=== PATIENT | male | born 1950 | race Caucasian/White ===

== ENCOUNTER 2019-02-03 12:00 | Inpatient (IN) | payer OTHER, SELFPAY ==
[2019-01-27 12:40] VITALS: BMI 29.2
[2019-02-03] VITALS (15 sets, daily range): BP systolic 90–128; BP diastolic 46–82; PULSE 45–69; RESP 8–20; TEMP 36.3–37.1; O2SAT 95–100; BMI 28.8
--- NOTE | 2019-02-03 06:00 | DI.RAD.S_ITS ---
PROCEDURE: XR PELVIS 1-2V INDICATIONS: post op total right hip TECHNIQUE: 1 view of the lower pelvis acquired. COMPARISON: [facility], CR, XR PELVIS WITH LATERAL HIP RIGHT, 12/25/2018, 13:56. FINDINGS: Bones: Patient is status post right hip arthroplasty, with hardware components in expected positions. The hip joint appears congruent. The visualized bony structures appear intact. Prior left total hip arthroplasty is again seen with no gross hardware loosening or failure. Soft tissues: Overlying postoperative changes are noted. No suspicious soft tissue densities. IMPRESSION: Postop changes from right total hip arthroplasty with anatomic right hip alignment. Dictated by: Madan Peres M.D. on 02/03/2019 at 16:57 Approved by: Madan Peres M.D. on 02/03/2019 at 16:58
[2019-02-03] MEDS: ACETAMINOPHEN 325 MG TABLET 975 MG PO (12:45)
[2019-02-03] MEDS: CELECOXIB 200 MG CAPSULE PO (12:45)
[2019-02-03] MEDS: PREGABALIN 75 MG CAPSULE PO (12:45)
--- NOTE | 2019-02-03 13:42 | PM.PREOP ---
Pre-operative Note Interval Note History & Physical reviewed/Exam performed by Physician: Yes Changes to H&P: No
[2019-02-03] MEDS: CEFAZOLIN 1 GM VIAL IV (14:19)
[2019-02-03] MEDS: LACTATED RINGERS 1,000 ML 42 ML IV ×2 (14:40→15:51)
--- NOTE | 2019-02-03 14:54 | SUR.OPER ---
Lateral on padded OR bed. Gel axillary roll. Arms secured on padded armboard with pillow supporting top arm. Padded hip positioner braces x4 - anterior and posterior chest and pelvis. Additional gel pad used anterior pelvis. Gel pad under bottom leg from knee to foot and secured with tape over sheet.
[2019-02-03] MEDS: ROPIVACAINE 0.5% PF 5 MG/ML 20ML AMP 60 ML INJ (15:03)
[2019-02-03] MEDS: KETOROLAC 30 MG/ML VIAL IM (15:04)
[2019-02-03] MEDS: MORPHINE 4 MG/ML INJ IM (15:04)
[2019-02-03] MEDS: TRANEXAMIC ACID 1,000 MG VIAL 2000 MG INJ ×2 (15:05→15:28)
--- NOTE | 2019-02-03 15:58 | SUR.PREOP ---
addendum to preop notes. IV started, LR infusing @ 1235 (first bag)
--- NOTE | 2019-02-03 16:21 | P.OP_ITS ---
Operative Date/Time/Diagnoses Date of procedure: 02/03/19 Time of procedure: 16:18 Pre-op diagnosis: Right hip degenerative joint disease Post-op diagnosis: same Procedure & Clinicians Procedure: Right total hip arthroplasty (CPT code 46952 with care management assistant) Same procedure as scheduled: Yes Indications: Patient is an 68-year-old male with severe right hip DJD. The patient has pain with activities and at rest, limited ambulation and activity tolerance, difficulties with ADLs, and failure of conservative treatment. We have discussed the nature of condition, treatment options, risks and benefits, and patient elects to proceed with total hip arthroplasty and gives informed consent. Surgeon: Rao Aponte Typecasting Machine Operator: David [place] Anesthesia Type: General and Spinal Operative Notes Closure Type: primary Specimen(s): none sent Prosthetic devices, grafts, tissues, transplants, or devices: Acetabulum: Corral and Nephew R3 acetabular component size 52 mm Femoral component: Corral [employer] Nephew Anthology stem size 7 with standard offset Femoral head: 36 mm + 0 Oxinium Estimated Blood Loss (mL): 150 Blood products transfused: none Procedure in detail: After satisfaction induction of anesthetic, and administration of IV antibiotics, the patient was positioned in the lateral decubitus position with all bony prominences well padded and pelvic position secured using a hip milling general superintendent positioning device. Right hip and lower extremity prepped and draped in the usual sterile fashion, 1st dose of intravenous tranexamic acid was administered, then a longitudinal incision was created centered over the greater trochanter and carried sharply through the skin and subcutaneous tissues down to the fascia justin which was divided longitudinally and retracted with a Charnley retractor. External rotators visualize, cut, tagged, and retracted posteriorly, then the capsule was cut in a T-type fashion with the corners tagged and retracted. Hip was dislocated and femoral neck cut made according to preoperative templating. Acetabular retractors then placed, and the acetabular labrum and osteophytes were excised. The acetabulum was then sequentially reamed to 51 mm with an excellent circumferential ream and fit with the trial. The trial component was removed and a permanent size 52 mm Corral and Nephew R3 acetabular component was selected, positioned, and impacted with satisfactory position and fixation achieved. Permanent liner was then inserted with the elevated lip directed posteriorly. Soft tissue then removed off the lateral femoral neck in the lateral neck was entered using a box osteotome. T-handled reamers placed down the canal followed by sequential broaching to 7 with the final broach left in place for trial reduction which demonstrated excellent leg length, range of motion, and stability characteristics with a 36 mm +0 trial ball. The trial and broach were removed, and a permanent size 7 Corral and Nephew Anthology stem was selected and inserted with excellent position and fixation achieved. Another trial reduction yielded the above characteristics so the trial ball was exchanged for a permanent 36 mm +0 Oxinium ball. The hip was irrigated and reduced and excellent leg length range of motion and stability characteristics were achieved and maintained. Periarticular tissues were infiltrated with combination of ropivacaine, Toradol, and Marcaine. The hip was copiously irrigated, and the capsule repaired with #2 Ethibond, and the piriformis was repaired back to the greater trochanter with the same. Fascia justin closed with interrupted #1 Ethibond sutures, and the subcutaneous tissues were closed in 2 layers of 0 Vicryl and 2 0 Vicryl. Skin was closed with kirk and sterile dressings applied. Second dose of tranexamic acid was administered intravenously, and the anesthetic was terminated. Complications: none Condition: stable Disposition: PACU Plan for aftercare: Patient will be admitted to the acute care woo, and anticipate discharge on postop day 1 or 2 with follow-up in office in 10-14 days. Outpatient physical therapy will be arranged and patient will continue to observe posterior hip precautions. Patient will continue use of postoperative Lovenox for 10 days postop.
--- NOTE | 2019-02-03 16:44 | SUR.PHASEI ---
1635 to room 220, bed down and locked, call light within reach, clothing bag to room. present. Report updated, VSS, states that he is very physically active. pt has no pain or nausea, alert, oriented, skin warm and dry, resp even and regular, dressing remains CDI, SCDs on by TAP GRINDER. gross movement in LE, R>L. stable. no questions/concerns from staff/patient/.
[2019-02-03] MEDS: LACTATED RINGERS 1,000 ML 125 ML IV (17:00)
[2019-02-03] MEDS: HYDROCODONE/ACET 5/325 TABLET 1 TAB PO (19:39)
[2019-02-03] MEDS: ASPIRIN EC 81 MG TABLET PO (19:41)
[2019-02-03] MEDS: CEFAZOLIN 2 GM/100 ML FROZ.PIGGY IV (22:03)
--- NOTE | 2019-02-03 23:24 | PC.NURSE ---
Post-op note: Juan brought from PACU around 1640, Ox3, VS stable, HR shoshana in the 40's-50's, reports bradycardia is baseline for him. RA oxygen 94-98%, using IS to 2500 & lung sounds are clear. Reported bilateral LE numbness, wiggling toes & slightly moving feet but denies feeling nurse hands on either leg/foot. SCD's on bilaterally, pedal pulses are strong. Since about 1940 he has reported increased feeling, dull ache to right hip, less numbness to legs/feet, can feel nurse hands on legs/feet but reports some residual numbness to LE's. Ambulated to BR with 1 minimal assist, mostly SBA when up. He voided with some hesitation, but after standing at toilet for 15 minutes he seemed to void adequate amounts. Reports didn't have my flomax this morning. He denies nausea, tolerating general diet. Oriented to room & call button, calling nurse appropriately for needs.
[2019-02-04] MEDS: HYDROCODONE/ACET 5/325 TABLET 1 TAB PO (00:25)
[2019-02-04] MEDS: LACTATED RINGERS 1,000 ML 125 ML IV (01:06)
[2019-02-04 05:40] VITALS: BP 106/52; PULSE 54; RESP 16; TEMP 36.9; O2SAT 98
[2019-02-04 05:59] LABS: Hematocrit 40.9 % (41-53); Hemoglobin 13.8 g/dL (13.5-17.5)
[2019-02-04] MEDS: CEFAZOLIN 2 GM/100 ML FROZ.PIGGY IV (06:15)
--- NOTE | 2019-02-04 07:57 | P.DS_ITS ---
History of Present Illness Date Patient Seen: 02/04/19 Time Patient Seen: 07:54 Chief complaint: [id number] Narrative: Pain is mild. Denies fever chills. No nausea vomiting. is Hohmann available to assist him. Patient's history of left total hip arthroplasty. Patient feels ready to go home this morning. Patient walked down the [place] yesterday with physical therapy. Otherwise without complaints. Discharge Providers Date of admission: 02/03/19 12:00 Discharge Date: 02/04/19 Primary care physician: Clarence Chou MD Consults: 02/03/19 06:00 Consult to Anesthesiology Routine Comment: Consulting Provider: Anesthesiologist Reason for consultation: Regional block for post operative pain control 02/03/19 16:47 Consult to Discharge Planning Routine Comment: Consult to Physical Therapy Evaluate & Treat Comment: Physician Instructions: post op ROBERTO protocol Consult to Respiratory Therapy Evaluate & Treat Comment: Physician Instructions: Evaluate and treat Discharge provider: David [place] PA-C Summary Discharge Diagnosis: Status post right total hip arthroplasty Hospital Course: Procedure: Right total hip arthroplasty (CPT code 53662 with assistant service manager) Same procedure as scheduled: Yes Indications: Patient is an 68-year-old male with severe right hip DJD. The patient has pain with activities and at rest, limited ambulation and activity tolerance, difficulties with ADLs, and failure of conservative treatment. We have discussed the nature of condition, treatment options, risks and benefits, and patient elects to proceed with total hip arthroplasty and gives informed consent. Surgeon: Rao Aponte Cloth Boil Off Machine Operator: David [place] Anesthesia Type: General and Spinal Operative Notes Closure Type: primary Specimen(s): none sent Prosthetic devices, grafts, tissues, transplants, or devices: Acetabulum: Corral and Nephew R3 acetabular component size 52 mm Femoral component: Corral [employer] Nephew Anthology stem size 7 with standard offset Femoral head: 36 mm + 0 Oxinium Estimated Blood Loss (mL): 150 Blood products transfused: none Patient admitted to the hospital for right total hip arthroplasty. patient consented to the same. Patient taken to the operating room underwent right total hip arthroplasty. Patient back in his room recovering well as in stable condition. Status at Discharge Cognitive/behavioral status at discharge: at baseline, oriented Functional status at discharge: uses cane/walker Overall status at discharge: patient is progressing back to baseline Time Spent with Patient Less than 30 minutes Exam Vital Signs (past 8 hours): - 04/15/19 23:55 02/04/19 05:40 Temperature 98.7 F 98.4 F Pulse Rate 54 L 54 L Respiratory Rate 15 16 Blood Pressure 103/53 L 106/52 L Pulse Oximetry 95 98 Oxygen Delivery Method Room Air Oxygen Flow Rate 0 Narrative Exam Narrative: 68-year-old male resting comfortably in bed in no apparent distress. Right hip dressing is clean, dry and intact. Neurovascular status is intact to the distal right lower extremity. Objective Labs Result Diagrams: 02/04/19 05:32 Labs: Laboratory Results - last 24 hr 02/04/19 05:32 Hgb 13.8 Hct 40.9 L Discharge Plan Discharge Plan Patient Disposition: Home Discharge comment: DC home today Discharge Med Rec/Prescriptions Prescriptions: New enoxaparin [Lovenox] 40 mg/0.4 mL Syringe 40 mg subcut DAILY Qty: 9 RF: 0 Continued tamsulosin 0.4 mg Capsule 0.4 mg PO DAILY RF: 0 Discontinued hydrocodone-acetaminophen 5-325 mg Tablet 0.5 tab PO BEDTIME PRN (Reason: pain) RF: 0 Follow up/Referrals: Clarence Chou MD [Primary Care Provider] - Provider Discharge Instructions Diet: Diet as Tolerated Activity: Weightbearing as tolerated. Posterior hip precautions Cold/Heat Therapy: per aayush Skin/Wound/Dressing Care Report to your healthcare provider any signs of infection, such as:: chills, fever, increased pain, unusual drainage and unusual redness Dressing: keep clean and dry Discharge Data Primary Care Provider: Clarence Chou Attending Provider: Rao Aponte Admit Date/Time: 02/03/19 12:00 Quality VTE Deep Vein Thrombosis/Pulmonary Embolism Present on Admission: No
[2019-02-04] MEDS: ENOXAPARIN 40 MG/0.4 ML SYRINGE SUBCUT (08:01)
[2019-02-04] MEDS: ASPIRIN EC 81 MG TABLET PO (08:01)
[2019-02-04 08:08] VITALS: BP 116/62; PULSE 62; RESP 18; TEMP 36.9; O2SAT 95
--- NOTE | 2019-02-04 08:50 | PM.PNPO.1 ---
Subjective Date Patient Seen: 02/04/19 Time Patient Seen: 08:50 Exam Vital Signs (past 8 hours): - 02/04/19 05:40 Temperature 98.4 F Pulse Rate 54 L Respiratory Rate 16 Blood Pressure 106/52 L Pulse Oximetry 98 Oxygen Delivery Method Room Air Oxygen Flow Rate 0 Objective Labs Result Diagrams: 02/04/19 05:32 Labs: Laboratory Results - last 24 hr 02/04/19 05:32 Hgb 13.8 Hct 40.9 L Assessment & Plan Post-op Postoperative Procedures Operation Date: 02/03/19 13:30 Actual Procedures Side Surgeon p Total Hip Arthroplasty Right Rao Aponte MD Quality VTE Deep Vein Thrombosis/Pulmonary Embolism Present on Admission: No
--- NOTE | 2019-02-04 09:10 | PT.IIE ---
Current Diagnoses Unilateral primary osteoarthritis, right hip (02/03/19) Surgery Performed Operation Date: 02/03/19 13:30 Actual Procedures p Total Hip Arthroplasty(Right) - Rao Aponte MD Surgical History (Last Updated 01/27/19 @ 13:11 by Lexi Alejandro RN) H/O vasectomy (Acute ~1978) History of colonoscopy with polypectomy (Acute) History of total left hip arthroplasty (Acute ~2006) Hx of repair of left rotator cuff (Acute) Hx of tonsillectomy (Acute) Medical History (Last Updated 01/27/19 @ 13:11 by Lexi Alejandro RN) Arthritis (Acute) Melanoma (Acute) Osteoarthritis (Acute) Physical Therapy Inpatient Evaluation/Re-Eval M1 PT/OT-IP Prior Functional Status Start: 02/04/19 13:38 Freq: NEEDED Status: Active Protocol: Document 02/04/19 09:10 AB (Rec: 02/04/19 14:04 AB [id number]) Medical Review Prior Functional Status Medical History Reviewed Yes Communication able to make needs known Mobility and Gait stated that he is independent with all mobilities and ambulation without AD Social History Household Members spouse Living Arrangements House Number of Floors (Floors) One Floor Number of Stairs To Enter/Railing? 2 steps to enter without rails Home Environment Tub/Shower Home Equipment Front Wheel Walker Straight Cane Raised Toilet Seat Without Armrests Hand Held Shower Employment Status Retired M2 PT-IP Current Condition Start: 02/04/19 13:38 Freq: NEEDED Status: Active Protocol: Document 02/04/19 09:10 AB (Rec: 02/04/19 14:04 AB [id number]) Physical Therapy Current Condition Current Condition Evaluation Date 02/04/19 Treatment Diagnosis s/p R ROBERTO posterior approach; difficulties in walking Onset Date 02/03/19 Precautions Posterior Hip Precautions No Hip Flexion > 90 degrees No Hip Internal Rotation No Hip Adduction Weight Bearing Status Weight Bearing Status Weight Bear as Tolerated M3 PT-IP Subjective Start: 02/04/19 13:38 Freq: NEEDED Status: Active Protocol: Document 02/04/19 09:10 AB (Rec: 02/04/19 14:04 AB [id number]) Subjective Physical Therapy Visit Type Type Initial Evaluation Visit Start Time 09:10 Visit Stop Time 09:54 Total Visit Minutes 44 Number of FINANCIAL INSTITUTION PRESIDENT Visits 0 Physical Therapy Visit Comments Patient Comments pt agreeable to do PT Patient Goals to go home Therapy Pain Assessment Pain When Pain Assessed At Rest Pain Present Pain Present Pain Reported Location Right Hip Intensity 2 Scale Used Numeric (1 - 10) Pain Management Techniques Apply Cold Re-positioning Timing of Activity with Medications M4 PT-IP Mobility and Gait Start: 02/04/19 13:38 Freq: NEEDED Status: Active Protocol: Document 02/04/19 09:10 AB (Rec: 02/04/19 14:04 AB [id number]) PT-Bed Mobility Assessment Supine to Sit Supine to Sit Standby Assistance Sit to Supine Sit to Supine Standby Assistance Scooting Scooting to Edge of Bed Standby Assistance Scooting Up and Down in Bed Standby Assistance PT-Transfer Assessment Sit to and From Stand Sit to and from Stand Standby Assistance 1 Person Assistance Use of Upper Extremities Equipment Transfer Assistive Device Gait Belt Front Wheeled Walker Orthotic/Prosthetic Devices or Brace: No Gait Assessment Gait Gait Assistance Required: Standby Assistance Distance (Feet) 150 Able to Maintain Weight Bearing Status Yes During Gait Assistive Devices Assistive Device Gait Belt Front Wheeled Walker Orthotic/Prosthetic Devices or Brace: No Gait Deviations General Gait Pattern Antalgic Factors Limiting Gait Function Factors Limiting Gait Function Decreased Activity Tolerance Decreased Strength Limited Range of Motion Pain Poor Balance Stair Climbing Assessment Evaluation Level of Assist On Stairs Contact Guard Assistance 1 Person Assistance Devices Stair Climbing Assistive Devices Straight Cane Technique/Endurance Stair Climbing Direction Ascend and Descend Stair Climbing Technique Step to Step Number of Steps Climbed 3 Query Text: Stair Climbing Set # Repetitions (reps) 2 Comments Stair Climbing Comments caregiver training conducted for stair climbing. pt completed up/down steps with PT assisting SOCIAL SERVICE COORDINATOR and pt also used SPC. pt completed with CGA. spouse counter demonstrated and was able to assist pt with 2nd set safely. PT-Balance Assessment Sitting Balance and Reactions Static Sitting Balance Ability Good Dynamic Sitting Balance Ability Good Standing Balance and Reactions Static Standing Balance Ability Fair Dynamic Standing Balance Ability Fair Device Used FWW M5 PT-IP Objective Assessments Start: 02/04/19 13:38 Freq: NEEDED Status: Active Protocol: Document 02/04/19 09:10 AB (Rec: 02/04/19 14:04 AB [id number]) Orientation Orientation/Cognition Level of Alertness Alert Orientation Name Age Birthday Month Date Year Day of Week Place Situation Language Function Ability No Deficits Noted Safety Awareness Understands Safety Issues Memory Description No Deficits Noted Gross Range of Motion Lower Extremity ROM Assessment Within Functional Limits Strength Lower Extremity Strength Assessment Right Impaired Knee 4-/5 Coordination Assessment Gross Coordination Gross Coordination WNL Sensation Assessment Sensation Gross Sensation WNL Muscle Tone Muscle Tone WNL Yes M6 PT-IP Treatment Start: 02/04/19 13:38 Freq: NEEDED Status: Active Protocol: Document 02/04/19 09:10 AB (Rec: 02/04/19 14:04 AB [id number]) Physical Therapy Treatment Education Education Provided Precautions Weight Bearing Status Post-Op Packet Safety M7 PT-IP Assessment and Plan Start: 02/04/19 13:38 Freq: NEEDED Status: Active Protocol: Document 02/04/19 09:10 AB (Rec: 02/04/19 14:04 AB [id number]) PT Summary Assessment and Plan Potential Rehabilitation Potential Good Status of Condition at Evaluation Stable Summary Impairments Pain ROM Strength Balance Coordination Sensation Tone Cognition Bed Mobility Transfers Gait Activity Tolerance Assessment Summary pt doing well with mobility and plans to go home with spouse to assist him. pt may go home when medically stable. Goals Bed Mobility Goal Independent Transfer Goal Independent Front Wheeled Walker Gait Goal Independent Front Wheel Walker Gait Distance 200 Other Goals up/down 2 steps without rails using SPC and SOCIAL SERVICE COORDINATOR CGA Days to Meet Goals 3 Frequency of Treatment Frequency Of Treatment Twice a Day Treatment Plan Physical Therapy Treatment Plan Bed Mobility Training Transfer Training Gait Training Therapeutic Exercise Balance Retraining Post Op Education Discharge Planning Hot or Cold Pack Neuromuscular Re-ed Coordination Retraining Manual Therapy Other Recommendations and Next Treatment ambulation, caregiver training Focus Recommendations To Nursing Amount of Assist Needed Standby Assistance Discharge Recommendations PT Discharge Recommendations Home with Assistance Outpatient PT
--- NOTE | 2019-02-04 12:15 | CM.DANOTE ---
Discharge Planning/Care Management DCP: assessment: case received, EMR reviewed. Discussed in Team Rounds. Ortho RITU [place] did see pt about 0700 this morning and ok'd him for a d/c to home. His note stated pt had done well with PT yesterday although review of EMR and discussion with PT indicate that pt was not seen until later this morning. Went to room to check in with pt and found room empty. Pt is a 68 year old male who admitted yesterday for a planned R ROBERTO: surgeon: Dr. Fadi Jo MCR ADV Pt arrived to the floor from PACU yesterday late afternoon 1435. Discussion with therapy team now indicates that PT Jeanna did see pt for his first session this morning and ok'd him for home. He did leave shortly thereafter with no concerns relayed by the care team members. CM Discharge Assessment Start: 02/04/19 12:14 Freq: Status: Discharge Protocol: Document 02/04/19 12:14 ITV (Rec: 02/04/19 12:15 ITV [id number]) Discharge Planning Assessment Advance Directives? Yes Advance Directives on File No History Provided By Medical Record Prior Living Arrangements House Household Members spouse Review Status In Process Next Review Type Continued Stay Review Pre-Anesthesia Assessment Start: 01/27/19 12:40 Freq: Status: Discharge Protocol: Document 01/27/19 12:40 CAB (Rec: 01/27/19 13:39 CAB [id number]) Pre-Anesthesia Assessment Patient Also Known As (MARTIN) Salvador Patient Information Reviewed Via Phone Assessment Assessment Completed With Patient Diagnostic Results CBC EKG Electrolytes Comment Outside labs/ECG scanned to record. ECG SB/45 Primary Care Provider Clarence Chou Seen Specialist in Last 12 Months Yes Specialist Seen Orthopedist Primary Language Slovak R D Intern Required No Height 165.1 cm Weight 79.832 kg Body Mass Index (BMI) 29.2 Hearing Ability Normal Visual Assist Contacts Glasses Dentition Type Teeth, Natural Present Barriers to Learning None Other Aids No Hx Anesthesia Reactions No Hx Family Anesthesia Reaction No Hx Malignant Hyperthermia No Hx Blood Transfusions No Anesthesia Review Requested No Conveyancer No alcohol intake current alcohol intake frequency 0-2 drinks per day Smoking Status Never smoker Substance Use Type does not use Pain Present Pain Reported Musculoskeletal Symptoms Joint Pain Joint Stiffness Limited Range of Motion History of Falling (Recent or History of No ) Patient is completely paralyzed or No completely immobile Mental Status Oriented to own ability Is patient on oxygen? No Does patient have DELONG/SOB No Hx Sleep Apnea No Currently Taking a Beta Carole No Can You Climb a Flight of Stairs Without Yes SOB Hx Chest Pain No Hx SOB No Hx Syncope or Dizziness No Anti-Coagulant Therapy No Has a Hand Drawer In Helper No Cardiac Testing No Hx Pacemaker/ICD No Pacemaker Rep Required? No Cardiac Clearance Received Not Applicable Diet Type At Home Regular dysphagia No Genitourinary Symptoms Change in Urinary Stream Difficulty Urinating Urinary Catheter Present No Hx Urinary Self Catheterization No Diabetes No Hx Drug Resistant Organism No Presence of External or Internal Medical Yes: Left Hip prosthesis Devices Have you traveled outside the [facility] in the last 30 days? Marital Status Lives With spouse Prior Living Arrangements House Number of Floors (Floors) One Floor Support System Spouse Patient Discharge Plan Description Return Home Comment Pt not advised on length of stay per surgeon's office Feels Safe in Current Environment Yes Been Physically Hurt or Threatened By a No Person in Current Environment Do you have thoughts of harming yourself None or others? Are you currently considering suicide? No Do you have a plan to hurt yourself or No Plan others? Do You Have Any Spiritual Beliefs That No May Affect Your HC Choices? Do You Have Any Cultural Practices That No May Affect Your HC Choices? Spiritual Referral None Comment L[employer] Who Can We Speak to About Patient's Care Family, friends Identifying Code for Release of Patient Declines to issue Information Health Care Proxy/Next of Kin Mishel () Health Care Proxy Emergency Contact Name Mishel () Emergency Contact Advance Directives? Yes Advance Directives on File No Requested Patient Bring Advanced Yes Directives DOS PAC Instructions Durable medical equipment Medications to take/avoid Nasal antibiotic No ETOH/petroleum product on skin DOS NPO Pre-surgical wash Sensory aids Sturdy shoes/comfortable clothes Do not bring valuables and remove jewelry
== END 2019-02-04 10:01 | disposition home or self-care (01) | DRG 470 ==
PROVIDERS: Admitting Provider Orthopaedic Surgery; PCP Family Medicine; Visit Provider Orthopaedic Surgery
PROC: 0SR90JZ Replacement of Right Hip Joint with Synthetic Substitute, Open Approach (ICD-10-PCS; CPT 27130; principal; 2019-02-03 13:30)
DX: M16.11 Unilateral primary osteoarthritis, right hip (principal); Z96.642 Presence of left artificial hip joint
CPT/HCPCS: 72170; 85014; 85018; 94760; 97116; 97161; C1776; J0690; J1100; J1650; J1885; J2250; J2270; J2405; J2704; J2795; J3010

== ENCOUNTER → 2021-02-28 10:21 | Outpatient (CLI) | payer OTHER, SELFPAY ==
[2019-02-03 17:54] VITALS: BMI 28.8
--- NOTE | 2021-02-28 10:22 | DI.RAD.S_ITS ---
PROCEDURE: XR CERVICAL SPINE 4V OR 5V INDICATIONS: Right upper extremity cervical radiculopathy TECHNIQUE: 5 views of the cervical spine acquired. COMPARISON: None. FINDINGS: Bones: No acute fracture identified. Multilevel degenerative endplate sclerosis and spurring. Diffuse facet arthropathy. Straightening of the normal lordotic curvature. Severe narrowing of the C4-C5 C5-C6 and C6-C7 disc spaces. Severe C7-T1 disc space narrowing. Multilevel right bony foraminal narrowing, [id number] at C4-C5 and C5-C6 and severe at C6-C7 C7-T1. Suboptimal evaluation of the left neural foramen secondary to obliquity. There is probably at least mild bony foraminal narrowing throughout the cervical spine. This could be further assessed with dedicated cervical spine MRI as clinically necessary. Soft tissues: No prevertebral soft tissue swelling. IMPRESSION: Severe multilevel cervical spondylosis and facet arthropathy as above Dictated by: Julio Lincoln M.D. on 02/28/2021 at 11:34 Approved by: Julio Lincoln M.D. on 02/28/2021 at 11:36
== END ==
PROVIDERS: PCP Family Medicine; Referring Provider Physical Medicine & Rehabilitation; Visit Provider Physical Medicine & Rehabilitation
DX: M47.22 Other spondylosis with radiculopathy, cervical region (principal); M48.02 Spinal stenosis, cervical region; M75.111 Incomplete rotator cuff tear or rupture of right shoulder, not specified as traumatic
CPT/HCPCS: 72050; 99214

== ENCOUNTER → 2021-03-07 07:41 | Outpatient (CLI) | payer OTHER, SELFPAY ==
[2019-02-03 17:54] VITALS: BMI 28.8
--- NOTE | 2021-03-07 07:42 | DI.MRI.S_ITS ---
PROCEDURE: MR CERVICAL SPINE WO CON INDICATIONS: Multilevel cervical stenosis with right upper extremity radi TECHNIQUE: Noncontrast sagittal T1 spin echo and T2 fast spin echo, sagittal STIR, foraminal oblique sagittal T2 fast spin echo, and axial gradient echo or T2 fast spin echo through the cervical spine. COMPARISON: [facility], CR, XR CERVICAL SPINE 4V OR 5V, 02/28/2021, 10:33. FINDINGS: Image quality: Diagnostic, with note made of motion artifact. Alignment and Curvature: Reversal of the normal cervical lordosis is seen, with the apex at the C5-C6 level. No focal AP alignment abnormality is seen. Bone Marrow: Marrow demonstrates normal overall signal. Spinal Cord: Visualized spinal cord has normal size and signal. No cerebellar tonsillar herniation. Paraspinous Soft Tissues: No paravertebral masses. Prevertebral soft tissues are normal in thickness. C2-C3: [id number]-hw-[id number] loss of disc height and disc signal can be seen. Moderate generalized disc osteophyte complex is seen. Mild facet joint hypertrophy is seen. There is moderate to severe right-sided moderate left-sided neural foraminal narrowing seen. Mild central canal narrowing is seen. C3-C4: Mild loss of disc height is seen. Loss of disc signal is seen. A mild degree of generalized disc osteophyte complex is seen. Moderate facet joint hypertrophy is seen. Moderate to severe bilateral neural foraminal narrowing can be seen, left worse than right. Mild to moderate central canal narrowing is seen. C4-C5: Moderate to severe loss of disc height and disc signal are seen. At least moderate disc osteophyte complex is seen. There is a central disc osteophyte protrusion seen. Uncovertebral joint hypertrophy is seen at this level. Moderate facet joint hypertrophy is seen. Moderate to severe bilateral neural foraminal narrowing is seen. Moderate to severe central canal narrowing can be seen, with associated mass effect upon the ventral spinal cord. C5-C6: Moderate to severe loss of disc height and disc signal can be seen. Moderate to severe disc osteophyte complex is seen. There is a prominent disc osteophyte protrusion seen within the central/right region, as on series 4, image 29. There is associated ventral cord flattening seen. Moderate facet joint hypertrophy is seen. Moderate to severe bilateral neural foraminal narrowing is seen at this level. C6-C7: At least moderate loss of disc height and disc signal can be seen. Moderate to prominent disc osteophyte complex is seen, with a central disc osteophyte protrusion. There is bdgb-[id number]-cgggsscb right-sided and mild left-sided facet hypertrophy seen. There is moderate to severe bilateral neural foraminal narrowing seen. Moderate to severe central canal narrowing is seen. There is associated mass effect upon the ventral spinal cord. C7-T1: Moderate to severe loss of disc height and disc signal can be seen. At least moderate disc osteophyte complex is seen, which is eccentric to the left. There is mild right-sided and moderate left-sided facet hypertrophy seen. There is moderate to severe bilateral neural foraminal narrowing seen, left worse than right. At least moderate central canal narrowing is seen. There is associated mass effect upon the ventral spinal cord. IMPRESSION: Multiple levels of prominent cervical spine degenerative change are seen, which are worst at C5-C6. Dictated by: Lee Shepherd M.D. on 03/07/2021 at 9:30 Approved by: Lee Shepherd M.D. on 03/07/2021 at 9:35
== END ==
PROVIDERS: PCP Family Medicine; Referring Provider Physical Medicine & Rehabilitation; Visit Provider Physical Medicine & Rehabilitation
DX: M48.02 Spinal stenosis, cervical region (principal); M47.22 Other spondylosis with radiculopathy, cervical region
CPT/HCPCS: 72141

== ENCOUNTER → 2021-03-29 07:32 | Outpatient (CLI) | payer OTHER, SELFPAY ==
[2019-02-03 17:54] VITALS: BMI 28.8
[2021-03-29 12:49] LABS: COVID19 -Nasal RAPID Negative (Negative)
== END ==
PROVIDERS: PCP Family Medicine; Visit Provider Physical Medicine & Rehabilitation
DX: Z20.822 Contact with and (suspected) exposure to COVID-19 (principal)
CPT/HCPCS: 87635; C9803

== ENCOUNTER 2021-03-31 08:44 | Outpatient (CLI) | payer OTHER, SELFPAY ==
[2019-02-03 17:54] VITALS: BMI 28.8
[2021-03-31] VITALS (7 sets, daily range): BP systolic 116–136; BP diastolic 55–68; PULSE 38–76; RESP 15–20; TEMP 36.1; O2SAT 96–100
--- NOTE | 2021-03-31 08:45 | DI.RAD.S_ITS ---
PROCEDURE: PAIN C/T INTERLAMINAR INJECT INDICATIONS: SPINAL STENOSIS COMPARISON: [facility], MR, MR CERVICAL SPINE WO CON, 03/07/2021, 8:04. FINDINGS: Fluoroscopic spot filming was performed to verify placement of a spinal needle at the C6-C7 level, as labeled on the films. Appropriate location of the needle tip was confirmed by injection of iodinated contrast. IMPRESSION: No significant intraprocedural abnormality. Dictated by: Lee Shepherd M.D. on 03/31/2021 at 9:57 Approved by: Lee Shepherd M.D. on 03/31/2021 at 9:58
[2021-03-31] MEDS: MIDAZOLAM 5 MG/5 ML VIAL IV (09:30)
[2021-03-31] MEDS: IOPAMIDOL 15 ML VIAL 3 ML INJ (09:32)
[2021-03-31] MEDS: DEXAMETHASONE 10 MG/ML VIAL 30 MG INJ (09:35)
[2021-03-31] MEDS: BUPIVACAINE 0.25% (PF) VIAL 2 ML INJ (09:35)
--- NOTE | 2021-03-31 09:47 | P.PCN_ITS ---
Date/Time/Diagnoses Date of procedure: 03/31/21 Time of procedure: 09:47 Pre-procedure diagnosis: 1. CERVICAL STENOSIS, 2. CERVICAL HNP WITH UPPER EXTREMITY RADICULAR FEATURES Post-procedure diagnosis: same Procedure Notes Procedure: 1. FLUORSCOPICALLY GUIDED CONTRAST CONTROLLED INTERLAMINAR EPIDURAL STEROID INJECTION - C6/7 TL MICHELLE Indications: Juan is referred by Dr. Chou for treatment of Cervical HNP with Upper Extremity Paresthesias. Physician: Justus Larson Total Fluoroscopy time (seconds): 24 Total sedation minutes: 12 Complications: none Procedure in detail & Post-procedure care: FINDINGS Cervical Stenosis due to disc deterioration and nerve root irritation and nerve root irritation DESCRIPTION OF PROCEDURE Fluoroscopically guided, contrast-controlled C6/7 translaminar epidural steroid injection with conscious sedation. Following review of allergy and review of potential side effects and complications, including, but not necessarily limited to, infection, allergic reaction, local tissue breakdown, temporary as well as permanent nerve injury, stroke, paralysis, and possible , the patient indicated that patient understood and agreed to proceed. An informed consent document was signed by the patient, witnessed by a nurse, and placed in the patient's chart. Additionally, other treatment options including modalities, medications, and physical therapy were reviewed with the patient. After review of previous anaesthesic history and IV conscious sedation the patient was deemed safe to proceed with today?s procedure with IV conscious sedation as ASA class II designation. Safety time-out was performed to confirm patient ID, procedure to be performed and site of procedure. IV sedation was accomplished with a combination of 2mg of Versed administered by the RN after DO order, titrated to patient comfort during the course of the procedure while the patient remained responsive to all verbal commands. In the prone position, following sterile prep and drape of the cervical region, the C6/7 translaminar space was identified fluoroscopically. The skin was anesthetized via a 25-gauge 1.5-inch needle with 1% lidocaine solution. At this point, a 25-gauge, 2.5-inch short bevel spinal needle was atraumatically introduced and advanced under fluoroscopic guidance into epidural space at the C6/7 translaminar space. Depth was confirmed on lateral view. Radiological data, including multiple fluoroscopic views of the cervical spine, reveal a spinal needle at the C6/7 translaminar space. Lateral views then show placement of the needle in the epidural space. Subsequent views show contrast material flowing superiorly and inferiorly in the epidural space. DSA fluoroscopy with live contrast injection, once again, confirmed no vascular or intrathecal uptake. At this point, using loss of resistance technique with saline and air, the epidural space was entered. Following negative aspiration, injection of approximately 1.5 cc of Isovue-200 with live fluoroscopy in the AP view confirmed epidural flow in the epidural space without vascular or intrathecal uptake observed. Subsequently, a test dose of 1 cc of 1% lidocaine solution was injected and patient was observed for two minutes without signs or symptoms of complications, including abdominal pain, shortness of breath, bilateral upper or lower extremity weakness, nausea and vomiting, prior to steroid injection. At this point, 3cc or 30mg of dexamethasone was then injected without incident. The patient tolerated the procedure well without signs or symptoms of complicat ions prior to being transferred to the recovery area for further monitoring, The patient was then transferred to the recovery area where they were observed for an appropriate period of time after the injection. The patient reported a VAS score of 6 prior to the procedure and a post-procedure VAS of 0. POST OP INSTRUCTIONS The patient was provided a Pain Log to continue to record their response to the target-specific procedure prior to follow-up visit with the referring provider. Additionally, specific post-injection care instructions and a contact number to our office were provided if concerns arise regarding possible complications associated with the procedure are suspected.
== END 2021-03-31 10:08 | disposition home or self-care (01) ==
PROVIDERS: PCP Family Medicine; Referring Provider Physical Medicine & Rehabilitation; Visit Provider Physical Medicine & Rehabilitation
DX: M48.02 Spinal stenosis, cervical region (principal); M50.123 Cervical disc disorder at C6-C7 level with radiculopathy
CPT/HCPCS: 62321; 99152; J1100; J2250; J3010

== ENCOUNTER → 2025-05-22 14:03 | Outpatient (CLI) | payer OTHER, SELFPAY ==
[2019-02-03 17:54] VITALS: BMI 28.8
[2025-05-22 15:40] LABS: Prostate Specific Antigen 4.01 ng/mL (0.10-4.00)
== END ==
PROVIDERS: PCP Internal Medicine; Referring Provider Urology; Visit Provider Urology
DX: N40.1 Benign prostatic hyperplasia with lower urinary tract symptoms (principal); Z68.24 Body mass index [BMI] 24.0-24.9, adult
CPT/HCPCS: 51741; 52000; 76872; 81002; 84153

== ENCOUNTER → 2025-07-14 08:57 | Outpatient (CLI) | payer OTHER, SELFPAY ==
[2019-02-03 17:54] VITALS: BMI 28.8
== END ==
PROVIDERS: PCP Internal Medicine; Visit Provider Urology
DX: Z01.818 Encounter for other preprocedural examination (principal); N40.1 Benign prostatic hyperplasia with lower urinary tract symptoms
CPT/HCPCS: 81002; 87086; 99214

== ENCOUNTER 2025-07-21 08:09 | Day surgery (SDC) | payer OTHER, SELFPAY ==
[2019-02-03 17:54] VITALS: BMI 28.8
[2025-07-15 09:40] VITALS: BMI 24.6
[2025-07-21] VITALS (12 sets, daily range): BP systolic 78–127; BP diastolic 48–73; PULSE 34–72; RESP 11–17; TEMP 35.8–36.9; O2SAT 93–98; BMI 24.6
--- NOTE | 2025-07-21 | PATH_ITS ---
[facility] Accession Number: [id number] No. of containers..01 Tissue . 01 Material submitted: . prostate - PROSTATE CHIPS . 01 Diagnosis: A: PROSTATE CHIPS, (19 GRAMS): Prostatic glandular and stromal hyperplasia. Negative for invasive malignancy. [facility] 07/28/2025 1145 Local . 01 Electronically signed: . Alexis Catalan MD, Pathologist NPI- [id number] . 01 Gross description: . Received in formalin, labeled with two patient identifiers and prostate chips. The specimen consists of multiple fragments of michael, rubbery tissue admixed with a small amount of hemorrhagic soft tissue fragments and three metal clips. The specimen weighs 19 g in total with 0.5 g of hemorrhagic material and retained in the original container. The remaining michael, rubbery soft tissue fragments measure 9.0 x 7.0 x 1.0 cm in aggregate and are entirely submitted in cassettes A1-A11. ([id number]) /FRR 07/27/2025 1432 Local . 01 Pathologist provided ICD-10: N40.1 . 01 CPT . 143737 Specimen Comment: A courtesy copy of this report has been sent to [facility] Pathology Performed at: [address] [facility], [place], [place] [id number] MD Nathan Mueller MD Phone: [phone]
[2025-07-21] MEDS: LACTATED RINGERS 1,000 ML 21 ML IV (09:01)
[2025-07-21] MEDS: LACTATED RINGERS 1,000 ML 42 ML IV ×2 (09:29→13:08)
--- NOTE | 2025-07-21 09:31 | PM.PREOP ---
Pre-operative Note COVID-19 COVID-19 status: Not tested Interval Note History & Physical reviewed/Exam performed by Physician: Yes Changes to H&P: No
[2025-07-21] MEDS: levoFLOXacin 500 MG/100 ML PIGGYBACK 100 MG IV (10:07)
--- NOTE | 2025-07-21 10:23 | SUR.OPER ---
Lithotomy on padded OR bed, head on pillow, arms secured on padded arm boards at <90 degrees abduction. Legs secured in padded yellow fins stirrups. Safety strap across abdomen.
--- NOTE | 2025-07-21 12:13 | PM.OP.1 ---
Operative Date/Time/Diagnoses Date of procedure: 07/21/25 Time of procedure: 10:00 Pre-op diagnosis: Benign prostatic hyperplasia with lower urinary tract symptoms Post-op diagnosis: same Procedure & Clinicians Procedure: Cystoscopy Aquablation Same procedure(s) as scheduled: Yes Indications: 74 y/o M noted to have symptoms consistent w/ BPH and LUTS s/p a Urolift procedure in 2021. Discussed treatment options to include observation vs a trial of alpha blockers. Discussed mechanism of action and expected side effects to include orthostatic hypotension, nasal congestion and retrograde ejaculation. Also discussed the possible addition of Finasteride 5mg daily (discussed possible side effects to include decreased libido, worsening erectile dysfunction, loss of ejaculate volume as well as painful breast development or nipple tenderness), or a lower urinary tract evaluation prior to a bladder outlet procedure. His cystoscopy and TRUS prostate were notable for coaptating lateral prostatic lobes with a small intravesical median lobe and a TRUS volume of 92 cc. Discussed that he otherwise would be a candidate for Aquablation. Discussed risks of the procedure to include but not limited to pain, bleeding, infection, injury to urethra/bladder/either ureteral orifice, clot retention, irritative voiding symptoms for several months following the procedure, urinary incontinence, erectile dysfunction, retrograde ejaculation, need for open emergent repair of any bladder or ureteral injuries, urethral stricture or bladder neck contracture development, need for repeat procedures. Surgeon: Kostas Salinas Assisted?: No Anesthesia Type: General Operative Notes Findings: Coaptating lateral prostatic lobes, small intravesical median lobe Closure Type: not applicable Specimen(s): other (prostate chips) Applied: catheter Estimated Blood Loss (mL): 50 Blood products transfused: none Procedure in detail: After informed consent was obtained, the patient was identified brought to the operating room where he was placed in his supine position on the table.? Once there anesthesia was induced and maintained.? Ensuring an adequate level of anesthesia the patient was transitioned to the lithotomy position where after time-out he was prepped.? After prepping, ensuring an adequate level of anesthesia, administration IV antibiotics and time-out 60 cc of ultrasound gel was instilled within the rectum and the ultrasound probe which had been attached to the TRUS stepper which was attached to the TRUS stepper articulating arm which was secured to the bed was advanced into the rectum under direct vision via the ultrasound.? The ultrasound probe was then aligned and confirmation made that the prostate was centered and aligned in both the sagittal and transverse views.? The bladder neck, verumontanum, central and transitional zones were identified.? With the ultrasound in place and adjusted the patient was then draped in a sterile fashion. With the patient draped the 24 [place] aqua beam handpiece was then inserted through the urethra and advanced into the bladder.? Cystoscopy was then performed and no concerning bladder mass or lesions were noted.? Bilateral ureteral orifices were noted to be orthotopic in nature.? As the cystoscope was advanced the level of the sphincter, verumontanum, bladder neck were all identified via ultrasound and under direct vision.? The aqua beam hand place was then secured to the handpiece articulating arm which had been secured to the bed.? The Aquablation handpiece and TRUS probe were confirmed to be parallel and colinear.? Confirmation was then made that the aqua beam handpiece and nozzle was centered and anterior to the bladder neck.? The cystoscope was then retracted under direct vision in the sphincter and verumontanum were identified.? The tip of the cystoscope was then placed proximal to the external sphincter.? Compression was applied with the TRUS probe to the prostate.? The alignment of the TRUS probe and aqua beam handpiece was once again confirmed.? Horizontal alignment of the handpiece water jet was then performed.? With these adjustments made, the treatment zones were then planned using real-time ultrasound.? In the largest transverse view of the prostate the depth and radial angles were determined and set again in the transverse view of the prostate.? In the longitudinal and sagittal view the Aquablation nozzle was identified and its position registered with the software and robot.? The treatment contours were then determined and adjusted to reflect the intended margins of resection.? Following our plan confirmation, the Aquablation resection treatment was started.? A 2nd pass was then completed in similar fashion after the 1st pass had been completed.? At this point, the Aqua hand piece was removed from the urethra. The 26Fr resectoscope was then inserted into the urethra and cystoscopy was repeated.? The [employer] laborer car barn was utilized to evacuate the blood clots from the bladder.? The bladder neck was then resected using the bipolar Gyrus loop.? Bilateral ureteral orifices were again identified and noted to be intact at case end.? Hemostasis was obtained and noted to be excellent at case end.? The resectoscope was then removed and a 24Fr Nathan 3-way hematuria catheter was inserted through the urethra and into the bladder.? 45cc of sterile water was utilized for balloon insufflation.? Efflux was noted to be clear at case end.? Anesthesia was reversed, he was extubated in the OR and transferred to the PACU in stable condition for recovery. Complications: none Post-operative Condition: stable Disposition: PACU Plan for aftercare: Will continue to run CBI for a few hours to evaluate the efflux from his catheter.? Should it remain relatively clear and with minimal blood clots, will discharge home with catheter in place and have him return to Urology clinic in 2 days for a voiding trial.? Should his efflux remain red or have significant clot burden, will admit overnight for observation and continued CBI.
[2025-07-21] MEDS: GLYCOPYRROLATE 0.4 MG/2 ML VIAL IV (12:25)
--- NOTE | 2025-07-21 12:59 | SUR.PHASEI ---
Late entry: @ 1230 HR down to 34; anesthesia aware and orders given for glycopyrolate administration; patient asymptomatic and AAA X 3; denies pain or nausea but incontinent of large amount of loose stool. Cleaned patient thoroughly of stool and changed all linen; tolerated well; bear hugger back to patient for warm; brief applied. Dr Salinas applying clean tape to provide traction for catheter.
== END 2025-07-21 15:45 | disposition home or self-care (01) ==
PROVIDERS: PCP Internal Medicine; Referring Provider Internal Medicine; Visit Provider Urology
PROC: 0VT08ZZ Resection of Prostate, Via Natural or Artificial Opening Endoscopic (ICD-10-PCS; CPT 0421T; principal; 2025-07-21 10:00)
DX: N40.1 Benign prostatic hyperplasia with lower urinary tract symptoms (principal); R39.12 Poor urinary stream; R33.9 Retention of urine, unspecified; R35.1 Nocturia
CPT/HCPCS: 0421T; C2596; J1100; J1956; J2405; J2704; J3010

== ENCOUNTER → 2025-07-27 13:42 | Outpatient (CLI) | payer OTHER, SELFPAY ==
[2025-07-21 15:19] VITALS: BMI 28.8
== END ==
PROVIDERS: PCP Internal Medicine; Visit Provider Urology
DX: N40.1 Benign prostatic hyperplasia with lower urinary tract symptoms (principal)
CPT/HCPCS: 87086

== ENCOUNTER → 2025-09-07 09:24 | Outpatient (CLI) | payer OTHER, SELFPAY ==
[2025-07-21 15:19] VITALS: BMI 28.8
== END ==
PROVIDERS: PCP Internal Medicine; Visit Provider Urology
DX: N40.1 Benign prostatic hyperplasia with lower urinary tract symptoms (principal)
CPT/HCPCS: 87086